=== PATIENT | male | born 1985 | race Caucasian/White ===

== ENCOUNTER 2016-12-07 09:21 | Emergency (ER) | payer BC ==
[~2016-12-07] VITALS: Ht 160 cm; Wt 65.0 kg
[~2016-12-07 09:21] MED LIST: NO MEDS
[2016-12-07 09:24] VITALS: Ht 160 cm; Wt 65.0 kg
--- NOTE | 2016-12-07 09:45 | ERD ---
ER Documentation Chief Complaint Date/Time DATE: 12/07/16 TIME: 09:43 Chief Complaint seizure witnessed lasted 2min HPI This a 31-year-old male here for seizure. The patient has a long-standing seizure disorder and he says he takes Dilantin for his seizures. He states he has been taking his medication as prescribed. The patient said his last seizure was last night. The patient was in the street walking today and had a witnessed seizure by bystanders. Patient had general tonic-clonic seizure for about 2 minutes then stop. With the postictal state. EMS was called to [employer] the patient. The patient says he has a very mild dull diffuse headache. He denies any chest pain back pain or recent illness or trauma. He is adamant that he is taking his Dilantin as prescribed. He says he feels fatigued at this point like he does when he has a seizure afterwards ROS All systems reviewed and are negative except as per history of present illness. Medications Home Meds Reported Medications [No Meds] No Conflict Check 08/14/10 Allergies Allergies: Coded Allergies: No Known Allergy (Verified Allergy, Unknown, 08/14/10) PMhx/Soc History of Surgery: No Anesthesia Reaction: No Hx Neurological Disorder: Yes (SEIZURES) Hx Respiratory Disorders: No Hx Cardiac Disorders: No Hx Psychiatric Problems: No Hx Miscellaneous Medical Probl: No Hx Alcohol Use: No Hx Substance Use: No Hx Tobacco Use: No FmHx Family History: No coronary disease Physical Exam Vitals Vital Signs Date Time Temp Pulse Resp B/P Pulse Ox O2 Delivery O2 Flow Rate FiO2 12/07/16 09:24 97.8 95 18 116/63 95 Physical Exam Const: Well-developed, well-nourished Head: Atraumatic, normocephalic Eyes: Normal Conjunctiva, PERRLA, EOMI, normal sclera, no nystagmus ENT: Normal External Ears, Nose and Mouth, moist mucus membranes, has lateral tongue abrasion and a inner lower lip abrasion, no laceration. Neck: Full range of motion. No meningismus, no lymphadenopathy. Resp: Clear to auscultation bilaterally, no wheezing, rhonchi, rales Cardio: Regular rate and rhythm, no murmurs, S1 S2 present Abd: Soft, non tender x 4, non distended. Normal bowel sounds, no guarding or rebound, no pulsitile abdominal masses or bruits Skin: No petechiae or rashes, no ecchymosis , no maculopapular rash Back: No midline or flank tenderness Ext: No cyanosis, or edema, FROM x 4, normal inspection, neurovascularly intact x 4 Neur: Awake and alert, STR 5/5 x 4, sensation intact x 4, no focal findings, cerebellum intact Psych: Normal Mood and Affect Results 24 hrs Laboratory Tests Test 12/07/16 09:55 Phenytoin (Dilantin) Level < 3.0ug/ml Procedures/MDM PROCEDURE: CT brain without contrast CLINICAL INDICATION: Status post seizure TECHNIQUE: CT of the brain without contrast was performed on a multidetector CT scanner. One or more of the following dose reduction techniques were used: Automated exposure control, adjustment in mA and / or kV according to patient size, use of iterative reconstructive technique. CTDIvol = 45 mGy; DLP = 630 mGy -cm. COMPARISON: None available FINDINGS: No acute intracranial hemorrhage is identified. No extra-axial fluid collection is seen. There is no mass effect. No midline shift is identified. Ventricles and sulci are within normal limits for size and configuration. The density of the brain is within normal limits. Tolentino-white differentiation is preserved. Focal chronic deformity of the anterior wall of the left frontal sinus, likely post-traumatic. Mastoid air cells and imaged paranasal sinuses grossly clear. 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 IMPRESSION: 1. No evidence of acute intracranial pathology. 2. 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 3. Status post left enucleation with prosthetic left globe. RPTAT: VV .Marcio Gonzalez MD, MD Date Time Electronically viewed and signed by .Marcio Gonzalez MD, MD on 12/07/2016 10:37 .O/ CC: DANG BERRY DO Patient's Dilantin level is less than 3. The patient states he does not want to stay to get intravenous Dilantin. The patient states he is leaving the ER because he has a backpack has all of his belongings that is in attendance. He says he is living in a tent among other people he is afraid they are going to steal his stuff. I told him he could leave the ER and have a seizure and fall and had a serious injury. The patient states he understands and still wants to leave. Says he has Dilantin in his back and he will take it when he gets there. I told him that oral Dilantin loading protocol Patient eloped the ER Departure Diagnosis: Primary Impression: Seizure disorder Condition: Stable DANG BERRY DO Dec 07, 2016 09:45
--- NOTE | 2016-12-07 10:38 | RADRPT ---
PROCEDURE: CT brain without contrast CLINICAL INDICATION: Status post seizure TECHNIQUE: CT of the brain without contrast was performed on a multidetector CT scanner. One or mo re of the following dose reduction techniques were used: Automated exposure control, adjustment in m A and / or kV according to patient size, use of iterative reconstructive technique. CTDIvol = 45 mGy ; DLP = 630 mGy-cm. COMPARISON: None available FINDINGS: No acute intracranial hemorrhage is identified. No extra-axial fluid collection is seen. There is no mass effect. No midline shift is identified. Ventricles and sulci are within normal limits for size and configuration. The density of the brain is within normal limits. Tolentino-white differentiation is preserved. Focal chronic deformity of the anterior wall of the left frontal sinus, likely post-traumatic. Mast oid air cells and imaged paranasal sinuses grossly clear. There has been left enucleation with pros thetic globe. IMPRESSION: 1. No evidence of acute intracranial pathology. 2. 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 3. Status post left enucleation with prosthetic left globe. RPTAT: VV .Marcio Gonzalez MD, Date Time Electronically viewed and signed by .Marcio Gonzalez MD, on 12/07/2016 10:37 .O/
== END 2016-12-07 11:10 | disposition left against medical advice (07) ==
LOC: E/R 09:21
DX: G40.909 Epilepsy, unspecified, not intractable, without status epilepticus (principal); R40.2252 Coma scale, best verbal response, oriented, at arrival to emergency department; R51 Headache; R40.2142 Coma scale, eyes open, spontaneous, at arrival to emergency department; R40.2362 Coma scale, best motor response, obeys commands, at arrival to emergency department
CPT/HCPCS: 70450; 80185